=== PATIENT | male | born 1985 | race Caucasian/White ===

== ENCOUNTER 2022-03-30 20:43 | Emergency (ER) | payer MEDICAID ==
[2022-03-30] MEDS ORDERED: OLANZapine 5 MG Tab PO ONE (21:11)
[2022-03-30 21:27] LABS: ESTIMATED GFR 101 mL/min (>60)
[2022-03-30] MEDS ORDERED: diphenhydrAMINE 50 MG/ML SDV IM ONE (21:42)
[2022-03-30] MEDS ORDERED: Haloperidol Lactate 5 MG/ML SDV IM ONE (21:42)
[2022-03-30] MEDS ORDERED: LORazepam 2 MG/ML SDV IM ONE (21:42)
[2022-03-31] MEDS ORDERED: OLANZapine 5 MG Tab PO ONE (07:44)
[2022-03-31] MEDS ORDERED: Haloperidol Lactate 5 MG/ML SDV IM ONE (09:04)
[2022-03-31] MEDS ORDERED: LORazepam 2 MG/ML SDV IM ONE (09:04)
== END 2022-03-31 15:45 | disposition other institution (70) ==
LOC: JP.ED 20:43
DX: F31.9 Bipolar disorder, unspecified (principal); F20.9 Schizophrenia, unspecified; Z91.14 Patient's other noncompliance with medication regimen; Z20.822 Contact with and (suspected) exposure to COVID-19
CPT/HCPCS: 36415; 80053; 80143; 80179; 80305; 80307; 81001; 85025; 87635; 96372; 99283; 99285; A9270; J1200; J1630; J2060; U0002